=== PATIENT | male | born 1935 | race Caucasian/White ===

== ENCOUNTER 2017-03-09 15:35 | Inpatient (IN) | payer MEDICARE, OTHER ==
[~2017-03-09] VITALS: Ht 167.6 cm; Wt 88.5 kg
[2017-03-09] MEDS ORDERED: ONDANSETRON HCL/PF 4 MG/2 ML VIAL ONE (15:59)
[2017-03-09] MEDS ORDERED: IV NS 0.9% 1,000 ML BAG IV ONE (16:00)
[2017-03-09] MEDS ORDERED: ONDANSETRON HCL/PF 4 MG/2 ML VIAL IVP ONE (16:00)
[2017-03-09 16:05] LABS: BASOPHILS % (AUTO) 0.6 % (0.0-2.0); EOSINOPHILS % (AUTO) 0.6 % (0.0-6.0); HEMATOCRIT 40 % (39-51); HEMOGLOBIN 13.6 g/dL (13.5-17.5); LYMPHOCYTES # (AUTO) 0.7 /CMM (0.8-4.8); LYMPHOCYTES % (AUTO) 9.2 % (20.0-44.0); MEAN CORPUSCULAR HEMOGLOBIN 28 PG (26.0-33.0); MEAN CORPUSCULAR HGB CONC 34 g/dl (31.0-36.0); MEAN CORPUSCULAR VOLUME 82 fL (80-96); MONOCYTES # (AUTO) 0.4 /CMM (0.1-1.30); MONOCYTES % (AUTO) 6.2 % (2.0-12.0); NEUTROPHILS # (AUTO) 6.2 /CMM (1.8-8.9); NEUTROPHILS % (AUTO) 83.4 % (43.0-81.0); PLATELET COUNT (AUTO) 191 /CMM (150-450); RDW COEFFICIENT OF VARIATION 14.4 (11.5-15.0); RED BLOOD CELL COUNT(AUTO) 4.81 MIL/uL (4.5-6.0); WHITE BLOOD COUNT (AUTO) 7.3 K/uL (4.3-11.0)
[2017-03-09 16:19] LABS: CALCIUM, SERUM 9.4 mg/dL (8.5-10.1); CARBON DIOXIDE 30 mmol/L (21-32); CHLORIDE 101 mmol/L (98-107); CREATININE 1.5 mg/dL (0.6-1.3); GLUCOSE 233 mg/dL (74-106); SODIUM SERUM 136 mmol/L (136-145); UREA NITROGEN, BLOOD 22 mg/dL (7-18)
[2017-03-09 16:29] LABS: ALANINE AMINOTRANSFERASE 23 U/L (12-78); ALBUMIN 3.9 g/dL (3.4-5.0); ALKALINE PHOSPHATASE 52 U/L (46-116); ASPARTATE AMINOTRANSFERASE 20 U/L (15-37); BILIRUBIN,DIRECT 0.1 mg/dL (0.0-0.2); BILIRUBIN,TOTAL 0.6 mg/dL (0.2-1.0); TOTAL PROTEIN, SERUM 7.6 g/dL (6.4-8.2)
[2017-03-09 16:31] LABS: APPEARANCE,URINE Clear (CLEAR); BILIRUBIN,URINE Negative (NEGATIVE); BLOOD, URINE Small Ery/uL (NEGATIVE); COLOR,URINE Yellow (YELLOW); KETONES,URINE Trace (NEGATIVE); LEUKOCYTE ESTERASE ,URINE Negative (NEGATIVE); NITRITE, URINE Negative (NEGATIVE); PROTEIN,URINE >=300 mg/dl (NEGATIVE); UGLUCOSE 250 MG/DL mg/dL (NEGATIVE); UROBILINOGEN,URINE 0.2 EU/dL (0.2)
[2017-03-09 16:38] LABS: TROPONIN I 0.094 ng/mL (0.00-0.056)
[2017-03-09 16:39] LABS: INR 1.21 (0.87-1.13); PROTHROMBIN TIME 12.6 SECS (9.5-12.7)
[2017-03-09 16:41] LABS: THYROID STIMULATING HORMONE 0.457 uIU/mL (0.358-3.74)
[2017-03-09 16:57] LABS: BACTERIA,URINE Many /HPF (None Seen); RBC,URINE 0-2 /HPF (0-2); SQUAMOUS EPITHELIAL CELL,UR Few /HPF (None Seen); WBC,URINE 0-2 /HPF (0-3)
[2017-03-09] MEDS ORDERED: ASPIRIN 81 MG TAB.CHEW ONE (17:24)
[2017-03-09] MEDS ORDERED: ASPIRIN 81 MG TAB.CHEW PO ONE (17:30)
[2017-03-09] MEDS ORDERED: Z GUARD REMEDY 2 OZ OINT TP PRN (18:00)
[2017-03-09] MEDS ORDERED: MAG HYDROX/AL HYDROX/SIMETH 30 ML UDC PO PRN (18:00)
[2017-03-09] MEDS ORDERED: ONDANSETRON HCL/PF 4 MG/2 ML VIAL IVP PRN (18:00)
[2017-03-09] MEDS ORDERED: HYDROCODONE/APAP 5/325MG 1 EACH TABLET PO PRN (18:00)
[2017-03-09] MEDS ORDERED: ZOLPIDEM TARTRATE 5 MG TABLET PO PRN (18:00)
[2017-03-09] MEDS ORDERED: MAGNESIUM HYDROXIDE 30 ML UDC PO PRN (18:00)
[2017-03-09] MEDS ORDERED: IV NS 0.9% 1,000 ML IV ONE (18:00)
[2017-03-09] MEDS ORDERED: DEXTROSE 50%-WATER 50 ML DISP.SYRIN IV PRN (18:30)
[2017-03-09 18:44] VITALS: BP 126/78
[2017-03-09 20:00] VITALS: BP_SYST 126; BP_DIAS 60; BP_DIAS 62
[2017-03-09] MEDS: BLOOD SUGAR DIAGNOSTIC 1 EACH STRIP VI SCH (22:09)
[2017-03-09] MEDS: *INSULIN REGULAR(HUMULIN R)HUM 100 UNIT/ML VIAL SQ PRN (22:14)
[2017-03-10] VITALS: BP_SYST 129; BP_SYST 134; BP_DIAS 65; BP_DIAS 78
[2017-03-10] MEDS ORDERED: TOLT4CAP PO (00:39)
[2017-03-10] MEDS ORDERED: GLIM4TAB2 PO (00:39)
[2017-03-10] MEDS ORDERED: LINA5TAB PO (00:39)
[2017-03-10] MEDS ORDERED: NUDEXTA PO (00:39)
[2017-03-10] MEDS ORDERED: VALS40TA4 PO (00:39)
[2017-03-10] MEDS ORDERED: RIVA10TA PO (00:39)
[2017-03-10] MEDS ORDERED: PIOG45TA5 PO (00:39)
[2017-03-10 04:00] VITALS: BP 134/64
[2017-03-10 04:13] LABS: BASOPHILS % (AUTO) 0.2 % (0.0-2.0); EOSINOPHILS # (AUTO) 0.1 /CMM (0.0-0.7); EOSINOPHILS % (AUTO) 0.9 % (0.0-6.0); HEMATOCRIT 33 % (39-51); HEMOGLOBIN 11.4 g/dL (13.5-17.5); LYMPHOCYTES # (AUTO) 0.7 /CMM (0.8-4.8); LYMPHOCYTES % (AUTO) 12.7 % (20.0-44.0); MEAN CORPUSCULAR HEMOGLOBIN 28 PG (26.0-33.0); MEAN CORPUSCULAR HGB CONC 34 g/dl (31.0-36.0); MEAN CORPUSCULAR VOLUME 83 fL (80-96); MONOCYTES # (AUTO) 0.5 /CMM (0.1-1.30); NEUTROPHILS # (AUTO) 4.4 /CMM (1.8-8.9); NEUTROPHILS % (AUTO) 77.2 % (43.0-81.0); PLATELET COUNT (AUTO) 135 /CMM (150-450); RDW COEFFICIENT OF VARIATION 15.1 (11.5-15.0); RED BLOOD CELL COUNT(AUTO) 4.01 MIL/uL (4.5-6.0); WHITE BLOOD COUNT (AUTO) 5.7 K/uL (4.3-11.0)
[2017-03-10 04:26] LABS: CALCIUM, SERUM 8.6 mg/dL (8.5-10.1); CARBON DIOXIDE 26 mmol/L (21-32); CHLORIDE 107 mmol/L (98-107); CREATININE 1.3 mg/dL (0.6-1.3); GLUCOSE 129 mg/dL (74-106); MAGNESIUM 1.6 mg/dL (1.8-2.4); PHOSPHORUS 2.5 mg/dL (2.5-4.9); POTASSIUM 3.5 mmol/L (3.5-5.1); SODIUM SERUM 142 mmol/L (136-145); UREA NITROGEN, BLOOD 22 mg/dL (7-18)
[2017-03-10 04:28] LABS: CHOLESTEROL 227 mg/dL (<200); HDL CHOLESTEROL 47 mg/dL (40-60); LDL 145 mg/dL (0-99); TRIGLYCERIDES 131 mg/dL (30-150)
[2017-03-10] MEDS: BLOOD SUGAR DIAGNOSTIC 1 EACH STRIP VI SCH ×4 (06:06→22:35)
[2017-03-10 08:00] VITALS: BP 134/64
[2017-03-10] MEDS: ACETAMINOPHEN 325 MG TABLET PO PRN ×2 (08:30→18:46)
[2017-03-10] MEDS: Magnesium 1GM/D5W 100ML PREMIX 100 ML IV SCH ×2 (10:01→11:23)
[2017-03-10] MEDS: INSULIN REGULAR, HUMAN 100 UNIT/ML 3 ML VIAL SQ PRN ×2 (11:32→16:46)
[2017-03-10 12:00] VITALS: BP 105/56
[2017-03-10] MEDS: LOSARTAN POTASSIUM 50 MG TABLET PO SCH (13:00)
[2017-03-10] MEDS: CARVEDILOL 6.25 MG TABLET PO SCH ×2 (14:04→21:00)
[2017-03-10] MEDS: ASPIRIN 81 MG TAB.CHEW PO SCH (14:04)
[2017-03-10 16:00] VITALS: BP 137/79
[2017-03-10 20:00] VITALS: BP 135/70
[2017-03-10] MEDS ORDERED: INSULIN DETEMIR 100 UNIT/ML CARTRIDGE SQ SCH (22:00)
[2017-03-10] MEDS: *INSULIN REGULAR(HUMULIN R)HUM 100 UNIT/ML VIAL SQ PRN (22:36)
[2017-03-11] VITALS: BP 117/64
[2017-03-11 04:00] VITALS: BP 140/75
[2017-03-11] MEDS: BLOOD SUGAR DIAGNOSTIC 1 EACH STRIP VI SCH ×2 (06:54→11:48)
[2017-03-11 07:52] LABS: BASOPHILS % (AUTO) 0.4 % (0.0-2.0); EOSINOPHILS % (AUTO) 0.6 % (0.0-6.0); HEMATOCRIT 38 % (39-51); HEMOGLOBIN 12.6 g/dL (13.5-17.5); LYMPHOCYTES # (AUTO) 1.1 /CMM (0.8-4.8); LYMPHOCYTES % (AUTO) 16.3 % (20.0-44.0); MEAN CORPUSCULAR HEMOGLOBIN 28 PG (26.0-33.0); MEAN CORPUSCULAR HGB CONC 34 g/dl (31.0-36.0); MEAN CORPUSCULAR VOLUME 84 fL (80-96); MONOCYTES # (AUTO) 0.6 /CMM (0.1-1.30); MONOCYTES % (AUTO) 9.2 % (2.0-12.0); NEUTROPHILS # (AUTO) 4.9 /CMM (1.8-8.9); NEUTROPHILS % (AUTO) 73.5 % (43.0-81.0); PLATELET COUNT (AUTO) 127 /CMM (150-450); RDW COEFFICIENT OF VARIATION 15.4 (11.5-15.0); RED BLOOD CELL COUNT(AUTO) 4.48 MIL/uL (4.5-6.0); WHITE BLOOD COUNT (AUTO) 6.7 K/uL (4.3-11.0)
[2017-03-11 08:00] VITALS: BP 121/74
[2017-03-11 08:09] LABS: ALANINE AMINOTRANSFERASE 20 U/L (12-78); ALKALINE PHOSPHATASE 45 U/L (46-116); ASPARTATE AMINOTRANSFERASE 27 U/L (15-37); BILIRUBIN,TOTAL 0.4 mg/dL (0.2-1.0); CALCIUM, SERUM 8.8 mg/dL (8.5-10.1); CARBON DIOXIDE 26 mmol/L (21-32); CHLORIDE 107 mmol/L (98-107); CREATININE 1.1 mg/dL (0.6-1.3); GLUCOSE 116 mg/dL (74-106); MAGNESIUM 2.1 mg/dL (1.8-2.4); PHOSPHORUS 3.1 mg/dL (2.5-4.9); POTASSIUM 3.6 mmol/L (3.5-5.1); SODIUM SERUM 143 mmol/L (136-145); TOTAL PROTEIN, SERUM 6.6 g/dL (6.4-8.2); UREA NITROGEN, BLOOD 21 mg/dL (7-18)
[2017-03-11] MEDS ORDERED: DEXTROMETHORPHAN PO SCH (09:00)
[2017-03-11] MEDS ORDERED: TOLTERODINE 2 MG CAP.SR PO SCH (09:00)
[2017-03-11] MEDS ORDERED: VALSARTAN 40 MG TABLET PO SCH (09:00)
[2017-03-11] MEDS ORDERED: QUINIDINE PO SCH (09:00)
[2017-03-11] MEDS ORDERED: ATORVASTATIN 10 MG TABLET PO SCH (09:00)
[2017-03-11] MEDS ORDERED: IV NS 0.9% 1,000 ML BAG IV SCH (09:00)
[2017-03-11] MEDS: ASPIRIN 81 MG TAB.CHEW PO SCH (09:07)
[2017-03-11] MEDS: LOSARTAN POTASSIUM 50 MG TABLET PO SCH (09:08)
[2017-03-11] MEDS: CARVEDILOL 6.25 MG TABLET PO SCH (09:09)
[2017-03-11] MEDS ORDERED: LOSARTAN POTASSIUM 50 MG TABLET PO SCH (09:30)
[2017-03-11] MEDS ORDERED: CARV6.252 PO (11:45)
[2017-03-11] MEDS ORDERED: LOSA50TA3 PO (11:45)
[2017-03-11] MEDS ORDERED: ATOR10TA PO (11:45)
[2017-03-11] MEDS ORDERED: ASPI-1169 PO (11:45)
[2017-03-11] MEDS: *INSULIN REGULAR(HUMULIN R)HUM 100 UNIT/ML VIAL SQ PRN (12:14)
[2017-03-11 16:00] VITALS: BP 119/62
[2017-03-11] MEDS ORDERED: RIVAROXABAN 10 MG TABLET PO SCH (17:00)
== END 2017-03-11 17:20 | disposition home or self-care (01) | DRG 280 ==
LOC: ER 15:37 → TELE 17:38 → MED 03-11 09:08
PROVIDERS: ADMIT Family Medicine; ATTEND Family Medicine
DX: I21.A1 Myocardial infarction type 2 (principal); N17.0 Acute kidney failure with tubular necrosis; G93.41 Metabolic encephalopathy; E11.65 Type 2 diabetes mellitus with hyperglycemia; J44.9 Chronic obstructive pulmonary disease, unspecified; Z86.73 Personal history of transient ischemic attack (TIA), and cerebral infarction without residual deficits; R53.1 Weakness; I10 Essential (primary) hypertension; N40.0 Benign prostatic hyperplasia without lower urinary tract symptoms; E83.42 Hypomagnesemia; Z79.4 Long term (current) use of insulin; E86.9 Volume depletion, unspecified
CPT/HCPCS: 36415; 70450-TC; 71010-TC; 80048-TC; 80053-TC; 80061-TC; 80076-TC; 81000-TC; 82962-TC; 83605-TC; 83735-TC; 84100-TC; 84443-TC; 84484-TC; 85025-TC; 85730-TC; 87040-TC; 87081-TC; 87086-TC; 93307-TC; J1815; J2405; J3475; J7030

== ENCOUNTER 2017-10-24 14:28 | Inpatient (IN) | payer MEDICARE, OTHER ==
[~2017-10-24] VITALS: Ht 172.7 cm; Wt 83.9 kg
[~2017-10-24 14:28] MED LIST: ASPI-1169 PO; ATOR10TA PO; CARV6.252 PO; GLIM4TAB2 PO; LINA5TAB PO; LOSA50TA3 PO; NUDEXTA PO; PIOG45TA5 PO; RIVA10TA PO; TOLT4CAP PO
--- NOTE | 2017-10-24 14:40 | NUR ---
[facility] TO ER;N/V X 2 DAYS PER FAMILY, NAD NOTED, VSS, RESP EVEN AND UNLABORED, PT WAS PUT ON MONITOR, WAITING FOR MD WOOD
[2017-10-24 16:15] LABS: BASOPHILS % (AUTO) 0.4 % (0.0-2.0); EOSINOPHILS % (AUTO) 0.3 % (0.0-6.0); HEMATOCRIT 41 % (39-51); HEMOGLOBIN 13.7 g/dL (13.5-17.5); LYMPHOCYTES # (AUTO) 0.8 /CMM (0.8-4.8); LYMPHOCYTES % (AUTO) 8.9 % (20.0-44.0); MEAN CORPUSCULAR HEMOGLOBIN 28 PG (26.0-33.0); MEAN CORPUSCULAR HGB CONC 33 g/dl (31.0-36.0); MEAN CORPUSCULAR VOLUME 84 fL (80-96); MONOCYTES # (AUTO) 0.3 /CMM (0.1-1.30); NEUTROPHILS # (AUTO) 7.6 /CMM (1.8-8.9); NEUTROPHILS % (AUTO) 86.4 % (43.0-81.0); PLATELET COUNT (AUTO) 234 /CMM (150-450); RDW COEFFICIENT OF VARIATION 14.3 (11.5-15.0); RED BLOOD CELL COUNT(AUTO) 4.87 MIL/uL (4.5-6.0); WHITE BLOOD COUNT (AUTO) 8.7 K/uL (4.3-11.0)
[2017-10-24] MEDS ORDERED: LIDOCAINE 2% JEL UROJET 10 ML MM ONE (16:24)
[2017-10-24] MEDS ORDERED: DIATR MEGLU/DIATRIZOATE SODIUM 30 ML BOTTLE (GASTROGRAPHIN) ONE (16:26)
[2017-10-24 16:28] LABS: CALCIUM, SERUM 9.3 mg/dL (8.5-10.1); CARBON DIOXIDE 29 mmol/L (21-32); CHLORIDE 99 mmol/L (98-107); CREATININE 1.7 mg/dL (0.6-1.3); GLUCOSE 255 mg/dL (74-106); SODIUM SERUM 134 mmol/L (136-145); UREA NITROGEN, BLOOD 22 mg/dL (7-18)
[2017-10-24 16:31] LABS: INR 0.99 (0.85-1.15)
[2017-10-24 16:33] LABS: ALANINE AMINOTRANSFERASE 19 U/L (12-78); ALBUMIN 3.5 g/dL (3.4-5.0); ALKALINE PHOSPHATASE 96 U/L (46-116); ASPARTATE AMINOTRANSFERASE 16 U/L (15-37); BILIRUBIN,DIRECT 0.2 mg/dL (0.0-0.2); BILIRUBIN,TOTAL 0.6 mg/dL (0.2-1.0); LIPASE 173 U/L (73-393); PREALBUMIN 23.2 MG/DL (18.0-35.7); TOTAL PROTEIN, SERUM 7.4 g/dL (6.4-8.2)
[2017-10-24 16:36] LABS: TROPONIN I < 0.017 ng/mL (0.00-0.056)
[2017-10-24 16:43] LABS: APPEARANCE,URINE Clear (CLEAR); BILIRUBIN,URINE Negative (NEGATIVE); BLOOD, URINE Negative Ery/uL (NEGATIVE); COLOR,URINE Yellow (YELLOW); KETONES,URINE Trace (NEGATIVE); LEUKOCYTE ESTERASE ,URINE Negative (NEGATIVE); NITRITE, URINE Negative (NEGATIVE); PH,URINE 5.5 (5.0-8.0); PROTEIN,URINE 100 mg/dl (NEGATIVE); UGLUCOSE 250 MG/DL mg/dL (NEGATIVE); UROBILINOGEN,URINE 0.2 EU/dL (0.2)
--- NOTE | 2017-10-24 16:45 | NUR ---
PTS DAUGHTER # LAST [phone]
--- NOTE | 2017-10-24 17:00 | NUR ---
PT FINISHED DRINKING GASTROGRAFFIN.
--- NOTE | 2017-10-24 19:04 | NUR ---
CALLED [employer] RUBBER AND POUNDER WAS PAGED.
--- NOTE | 2017-10-24 19:15 | NUR ---
REPORT RECEIVED FROM MERCEDES LOPEZ FOR DM.
--- NOTE | 2017-10-24 19:28 | NUR ---
REPORT GIVEN TO MERCEDES VELAZQUEZ
[2017-10-24] MEDS ORDERED: DEXTROSE 50%-WATER 50 ML DISP.SYRIN IV PRN ×2 (21:00→21:30)
[2017-10-24] MEDS ORDERED: INSULIN REGULAR, HUMAN 100 UNIT/ML 3 ML VIAL SQ PRN (21:00)
--- NOTE | 2017-10-24 21:11 | NUR ---
REPORT GIVEN TO MERCEDES RAYO FOR DM.
[2017-10-24 21:20] VITALS: BP 164/81
--- NOTE | 2017-10-24 21:20 | NUR ---
RN OPENING NOTES: RECEIVED PT ON ROOM AIR. PT TO BE PLACED ON TELE BOX ONCE ORDERS ARE PUT IN. PT IS DOMINICAN SPEAKING AND UNDERSTANDING ONLY VOICED BY THE DTR AT BEDSIDE. PT HAS IV AND IS PATENT AND INTACT. CURRENTLY H/L. CALL LIGHT WITHIN PT'S REACH. BED KEPT IN LOW, LOCKED POSITION, AND SIDE RAILS X 2UP. INFORMED FAMILY MEMBER AND PT THAT ONCE ORDERS ARE PUT IN, WILL NOTIFY THEM OF PLAN OF CARE. WILL CONTINUE TO MONITOR PT.
--- NOTE | 2017-10-24 21:20 | NUR ---
ENVIRONMENTAL SAMPLING TECHNICIAN NOTES: PER DTRMARCELA, AT BEDSIDE, PT IS NO LONGER A SMOKER. 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
--- NOTE | 2017-10-24 21:23 | NUR ---
PT TRANSPORTED VIA STRETCHER TO TELE 328.1 ON RECTIFYING OPERATOR WITH RN PER ACLS PROTOCOL. VSS.
[2017-10-24 21:55] LABS: THYROID STIMULATING HORMONE 0.718 uIU/mL (0.358-3.74)
[2017-10-24 22:00] VITALS: BP 164/81
--- NOTE | 2017-10-24 22:14 | NUR ---
DYE RANGE OPERATOR CLOTH NOTES: PAGED STRICKLER ATTENDANT JENNIFER SHAFER ABOUT REST OF ADMITTING ORDERS. CINTHYA SHAFER AWARE OF BP 164/81 HR 72.
--- NOTE | 2017-10-24 23:00 | NUR ---
REPRODUCTION ARTIST NOTES: STROKE PACKET GIVEN TO PT AT BEDSIDE. HOWEVER, PT IS ONLY WELSH SPEAKING/UNDERSTANDING ONLY. WILL ENDORSE TO AM NURSE TO GIVE TO FAMILY MEMBER WHEN THEY ARE AT BEDSIDE.
[2017-10-24] MEDS: BLOOD SUGAR DIAGNOSTIC 1 EACH STRIP IN SCH (23:03)
[2017-10-24] MEDS: IV NS 0.9% 1,000 ML IV PRN (23:28)
[2017-10-24] MEDS ORDERED: ACETAMINOPHEN 325 MG TABLET PO PRN (23:30)
[2017-10-24] MEDS ORDERED: Z GUARD REMEDY 2 OZ OINT TP PRN (23:30)
[2017-10-24] MEDS ORDERED: ZOLPIDEM TARTRATE 5 MG TABLET PO PRN (23:30)
[2017-10-24] MEDS ORDERED: ONDANSETRON HCL/PF 4 MG/2 ML VIAL IVP PRN (23:30)
[2017-10-24] MEDS ORDERED: MAGNESIUM HYDROXIDE 30 ML UDC PO PRN (23:30)
[2017-10-24] MEDS ORDERED: HYDROCODONE/APAP 5/325MG 1 EACH TABLET PO PRN (23:30)
--- NOTE | 2017-10-24 23:57 | NUR ---
WOODWORK SALVAGE INSPECTOR NOTES: CINTHYA SHAFER AT BEDSIDE.
[2017-10-25] MEDS ORDERED: BLOOD SUGAR DIAGNOSTIC 1 EACH STRIP IN SCH
[2017-10-25 00:07] VITALS: BP 162/86
--- NOTE | 2017-10-25 00:29 | NUR ---
WAREHOUSE LOADER NOTES: PER PEDIATRICIAN JENNIFER SHAFER, DO AN RN SWALLOW EVAL. SAT PT UPRIGHT. CHECKED FOR GAG REFLEX AND PT HAD A REFLEX, DID WATER WITH THICKENER AND PT SWALLOWED SIPS WITHOUT COUGHING, GAVE PT A SPOONFUL OF APPLE SAUCE AND PT SWALLOWED WITHOUT COUGHING. ASPIRATION SET UP AT BEDSIDE. PT PASSED RN SWALLOW. PEDIATRICIAN HOLLIS AWARE AND CHANGED NPO STATUS TO 2GM NA DIET. ALSO PEDIATRICIAN HOLLIS AWARE OF BP IN THE 160S. PER HOLLIS, OK IN 160S. IF GETS TO 170S, NOTIFY HER. WILL CONTINUE TO MONITOR PT.
[2017-10-25] MEDS: INSULIN REGULAR, HUMAN 100 UNIT/ML 3 ML VIAL SQ PRN ×4 (00:44→18:01)
--- NOTE | 2017-10-25 00:44 | NUR ---
APPLIED PSYCHOLOGY CHAIR NOTES: BLOOD SUGAR WAS 238. 4 UNITS OF INSULIN WAS ADMINISTERED. HAD TO MANUALLY ADMINISTER INSULIN THIS IS A NEW ADMIT AND NO INSULIN WAS AVAILABLE. USED INSULIN THAT WAS ON FLOOR. GAVE PT APPLE SAUCE WITH ASSISTANCE OF FEEDING.
[2017-10-25] MEDS ORDERED: NA PHOS,M-B/NA PHOS,DI-BA 1 EA ENEMA RC PRN (01:00)
[2017-10-25 04:00] VITALS: BP 124/69
[2017-10-25] MEDS: BLOOD SUGAR DIAGNOSTIC 1 EACH STRIP IN SCH ×3 (05:08→18:01)
--- NOTE | 2017-10-25 05:57 | NUR ---
EVENTS MANAGER NOTES: BLOOD SUGAR 132. LANGUAGE BARRIER WITH PT. WHEN TRYING TO GIVE PT SNACK, PT DOES NOT WANT TO BE FED AT THIS MOMENT. OFFERED A DRINK, PT WOULD JUST LIKE TO SLEEP. WILL CONTINUE TO MONITOR. WILL ENDORSE TO AM NURSE.
--- NOTE | 2017-10-25 06:51 | NUR ---
ORNAMENT SETTER CLOSING NOTES: ALL NEEDS WERE ATTENDED AND ANTICIPATED FOR. PT ON 2LPM VIA NC AND IS ASLEEP AT THIS TIME. PT ON SEMI-CONLEY'S POSITION. PT HAS IV ON L AC AND IS BEING INFUSED WITH IV NS AT 75ML/HR. PT ON TELE BOX AND READING SHOWS SR 64. BED ALARM ACTIVATED. CALL LIGHT WITHIN PT'S REACH. BED KEPT IN LOW, LOCKED POSITION, AND SIDE RAILS X 2UP. WILL ENDORSE TO AM NURSE FOR DM.
[2017-10-25 06:58] LABS: BASOPHILS % (AUTO) 0.6 % (0.0-2.0); EOSINOPHILS % (AUTO) 1.8 % (0.0-6.0); HEMATOCRIT 38 % (39-51); HEMOGLOBIN 12.5 g/dL (13.5-17.5); MEAN CORPUSCULAR HEMOGLOBIN 29 PG (26.0-33.0); MEAN CORPUSCULAR HGB CONC 33 g/dl (31.0-36.0); MEAN CORPUSCULAR VOLUME 87 fL (80-96); MONOCYTES # (AUTO) 0.5 /CMM (0.1-1.30); MONOCYTES % (AUTO) 8.1 % (2.0-12.0); NEUTROPHILS # (AUTO) 4.8 /CMM (1.8-8.9); NEUTROPHILS % (AUTO) 73.5 % (43.0-81.0); PLATELET COUNT (AUTO) 218 /CMM (150-450); RDW COEFFICIENT OF VARIATION 15.1 (11.5-15.0); RED BLOOD CELL COUNT(AUTO) 4.33 MIL/uL (4.5-6.0); WHITE BLOOD COUNT (AUTO) 6.5 K/uL (4.3-11.0)
[2017-10-25 07:25] LABS: CALCIUM, SERUM 8.5 mg/dL (8.5-10.1); CARBON DIOXIDE 27 mmol/L (21-32); CHLORIDE 100 mmol/L (98-107); CREATININE 1.5 mg/dL (0.6-1.3); GLUCOSE 135 mg/dL (74-106); MAGNESIUM 1.8 mg/dL (1.8-2.4); PHOSPHORUS 3.8 mg/dL (2.5-4.9); POTASSIUM 3.2 mmol/L (3.5-5.1); SODIUM SERUM 135 mmol/L (136-145); UREA NITROGEN, BLOOD 20 mg/dL (7-18)
[2017-10-25 07:26] LABS: CHOLESTEROL 207 mg/dL (<200); HDL CHOLESTEROL 47 mg/dL (40-60); LDL 132 mg/dL (0-99); TRIGLYCERIDES 143 mg/dL (30-150)
[2017-10-25 08:00] VITALS: BP 122/71
--- NOTE | 2017-10-25 08:00 | NUR ---
CHIEF LENDING OFFICER NOTES PATIENT IN BED RESTING NO SOB OR ACUTE DISTRESS NOTED. PATIENT ALERT, ORIENTED X2 DENIES ANY PAIN OR DISCOMFORT. PASHTO SPEAKING. BED IN LOW LOCKED POSITION. CALL LIGHT WITHIN REACH. WILL CONTINUE TO MONITOR.
[2017-10-25] MEDS: ASPIRIN 81 MG TAB.CHEW PO SCH (08:52)
[2017-10-25] MEDS: ATORVASTATIN 10 MG TABLET PO SCH (08:52)
[2017-10-25] MEDS: LOSARTAN POTASSIUM 50 MG TABLET PO SCH (08:53)
[2017-10-25] MEDS: CARVEDILOL 6.25 MG TABLET PO SCH ×2 (08:53→18:03)
[2017-10-25] MEDS: HEPARIN SODIUM, PORCINE 5000 UNITS/1 ML VIAL SQ SCH ×2 (09:00→21:23)
[2017-10-25] MEDS ORDERED: POTASSIUM CHLORIDE 10 MEQ TABLET.SA PO ONE (10:00)
[2017-10-25] MEDS: IV NS 0.9% 1,000 ML IV PRN (13:45)
[2017-10-25 16:00] VITALS: BP 140/86
--- NOTE | 2017-10-25 19:00 | NUR ---
MS RN NOTES PATIENT IN BED RESTING NO SOB OR ACUTE DISTRESS NOTED. ALL DUE MEDICATIONS ADMINISTERED, ALL NEEDS MET. PERIPHERAL IV INTACT PATENT. ENDORSED CARE TO PM SHIFT.
--- NOTE | 2017-10-25 19:30 | NUR ---
MS RN OPENING NOTES PATIENT IN BED RESTING, NO DISTRESS NOTED. NO SOB NOTED, PERIPHERAL IV LINE INTACT PATENT.FAMILY AT THE BED SIDE .SAFETY MEASURES IN PLACE, CALL LIGHT WITHIN REACH. WILL CONTINUE TO MONITOR .
[2017-10-25 20:00] VITALS: BP 149/80
--- NOTE | 2017-10-26 00:45 | NUR ---
PT PULLED OUT IV LINE WHILE TRYING TO GET OUT OF BED. REFUSING IV INSERTION AT THIS TIME. WILL TRY EARLY IN THE MORNING AGAIN .
[2017-10-26] MEDS: BLOOD SUGAR DIAGNOSTIC 1 EACH STRIP IN SCH ×3 (06:01→12:06)
[2017-10-26] MEDS: INSULIN REGULAR, HUMAN 100 UNIT/ML 3 ML VIAL SQ PRN ×2 (06:39→12:06)
--- NOTE | 2017-10-26 06:52 | NUR ---
MS RN CLOSING NOTES PATIENT IN BED RESTING, NO DISTRESS NOTED , NO COMPLAIN OF PAIN AT THIS TIME.SAFETY MEASURES IN PLACE, CALL LIGHT WITHIN REACH. WILL ENDORSE NEXT SHIFT FOR DM.
--- NOTE | 2017-10-26 07:59 | NUR ---
RN MS NOTES PT IN BED, ASLEEP, EASY TO AROUSE, ALERT, NO SIGN OF PAIN OR DISTRESS, CALL LIGHT WITHIN REACH, BED ALARM ON FOR SAFETY, KEPT WARM AND COMFORTABLE.
[2017-10-26 08:00] VITALS: BP 175/93
[2017-10-26 08:28] LABS: BASOPHILS % (AUTO) 0.4 % (0.0-2.0); EOSINOPHILS % (AUTO) 2.2 % (0.0-6.0); HEMATOCRIT 41 % (39-51); HEMOGLOBIN 13.5 g/dL (13.5-17.5); LYMPHOCYTES % (AUTO) 16.1 % (20.0-44.0); MEAN CORPUSCULAR HEMOGLOBIN 29 PG (26.0-33.0); MEAN CORPUSCULAR HGB CONC 33 g/dl (31.0-36.0); MEAN CORPUSCULAR VOLUME 87 fL (80-96); MONOCYTES # (AUTO) 0.5 /CMM (0.1-1.30); MONOCYTES % (AUTO) 8.3 % (2.0-12.0); NEUTROPHILS # (AUTO) 4.5 /CMM (1.8-8.9); PLATELET COUNT (AUTO) 206 /CMM (150-450); RDW COEFFICIENT OF VARIATION 15.5 (11.5-15.0); RED BLOOD CELL COUNT(AUTO) 4.66 MIL/uL (4.5-6.0); WHITE BLOOD COUNT (AUTO) 6.2 K/uL (4.3-11.0)
[2017-10-26 08:41] LABS: CARBON DIOXIDE 29 mmol/L (21-32); CHLORIDE 102 mmol/L (98-107); CREATININE 1.3 mg/dL (0.6-1.3); GLUCOSE 153 mg/dL (74-106); MAGNESIUM 1.9 mg/dL (1.8-2.4); PHOSPHORUS 3.2 mg/dL (2.5-4.9); POTASSIUM 3.5 mmol/L (3.5-5.1); SODIUM SERUM 139 mmol/L (136-145); UREA NITROGEN, BLOOD 14 mg/dL (7-18)
[2017-10-26 09:21] VITALS: BP 175/93
[2017-10-26] MEDS: ASPIRIN 81 MG TAB.CHEW PO SCH (09:21)
[2017-10-26] MEDS: CARVEDILOL 6.25 MG TABLET PO SCH (09:21)
[2017-10-26] MEDS: LOSARTAN POTASSIUM 50 MG TABLET PO SCH (09:21)
[2017-10-26] MEDS: ATORVASTATIN 10 MG TABLET PO SCH (09:22)
[2017-10-26] MEDS: HEPARIN SODIUM, PORCINE 5000 UNITS/1 ML VIAL SQ SCH (09:22)
--- NOTE | 2017-10-26 13:00 | NUR ---
RN MS NOTES PT IN BED, ASLEEP, EASY TO AROUSE, NOT IN PAIN OR DISTRESS, NOTED WITH GOOD APPETITE, ATE 100% OF HIS MEALS FOR BREAKFAST AND LUNCH, PT ABLE TO WALK WITH PHYSICAL THERAPIST WITH A WALKER, KEPT ON LOW BED WITH BED ALARM ON FOR SAFETY, ALL NEEDS ATTENDED.
--- NOTE | 2017-10-26 14:40 | NUR ---
RN MS NOTES PT IN BED, AWAKE, ALERT, NO SIGN OF PAIN OR DISTRESS, PT SEEN BY DR. PENA TODAY, DISCHARGE ORDER GIVEN, PT INFORMED, GRANDSON DR. FERNANDEZ INFORMED, DISCHARGE AND MEDICATION INSTRUCTIONS PROVIDED TO PT'S DAUGHTER JAMIE, STROKE PREVENTION EDUCATION MATERIALS PROVIDED TO FAMILY, VERBALIZED UNDERSTANDING, DISCHARGE PAPERS SIGNED, BELONGINGS ACCOUNTED FOR, ASSISTED TO HOSPITAL LOBBY BY LADLE LINER HELPER VIA WHEELCHAIR, LEFT WITH FAMILY IN STABLE CONDITION.
== END 2017-10-26 14:40 | disposition home or self-care (01) | DRG 64 ==
LOC: ER 14:29 → EDBD 21:45 → TELE 21:45 → MED 10-25 08:40
PROVIDERS: ADMIT Nurse Practitioner Acute Care; ATTEND Nurse Practitioner Acute Care
DX: I63.9 Cerebral infarction, unspecified (principal); N17.0 Acute kidney failure with tubular necrosis; I69.354 Hemiplegia and hemiparesis following cerebral infarction affecting left non-dominant side; E87.1 Hypo-osmolality and hyponatremia; F03.90 Unspecified dementia, unspecified severity, without behavioral disturbance, psychotic disturbance, mood disturbance, and anxiety; E86.0 Dehydration; J44.9 Chronic obstructive pulmonary disease, unspecified; K59.00 Constipation, unspecified; R47.01 Aphasia; Z79.899 Other long term (current) drug therapy; Z79.82 Long term (current) use of aspirin; Z79.01 Long term (current) use of anticoagulants; R62.7 Adult failure to thrive; E11.65 Type 2 diabetes mellitus with hyperglycemia; R13.10 Dysphagia, unspecified
CPT/HCPCS: 36415; 70450-TC; 74022-TC; 80048-TC; 80053-TC; 80061-TC; 80076-TC; 80305; 81000-TC; 82962-TC; 83605-TC; 83690-TC; 83735-TC; 83880; 84100-TC; 84134-TC; 84443-TC; 84484-TC; 85025-TC; 85652-TC; 85730-TC; 87081-TC; 87086-TC; 97116-TC; A4606; J1644; J1815; J3490; J7030; Q9963; Z7610